=== PATIENT | male | born 1970 ===

== ENCOUNTER 2018-09-22 15:44 | Emergency (ER) | payer MEDICAID, OTHER ==
[2018-09-22 16:10] VITALS: BMI 27.8
[2018-09-22 16:15] VITALS: RESP 18; TEMP 98.4
--- NOTE | 2018-09-22 16:29 | ED PDOC ---
Arrival/HPI - General Chief Complaint: Back Pain Time Seen by Provider: 09/22/18 15:56 - History of Present Illness Narrative History of Present Illness (Text): 09/22/18 16:29 Patient is a 48 yo male with no known medical history who presents with back pa in. 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 For the past few days, he has had left-sided low back pain that has been increasing in severity. He says the pain started gradually, and he does not recall a specific injury. He has full ROM but pain increases with movement. He has not tried anything to make the pain better. He has continued to work. He does not have a PMD. Time/Duration: < week Symptom Onset: Gradual Symptom Course: Worsening Quality: Aching Past Medical History - Provider Review Nursing Documentation Reviewed: Yes Primary Care Provider: Non [facility] Provider, - Cardiac Hx Cardiac Disorders: Yes Hx Hypertension: Yes - Psychiatric Hx Substance Use: No Family/Social History - Physician Review Nursing Documentation Reviewed: Yes Family/Social History: Unknown Family HX Smoking Status: Never Smoked Hx Alcohol Use: No Hx Substance Use: No Allergies/Home Meds Allergies/Adverse Reactions: Allergies No Known Allergies Allergy (Verified 09/22/18 16:15) Home Medications: Home Meds Medication Instructions Recorded Confirmed amLODIPine [Norvasc] 5 mg PO DAILY 09/22/18 09/22/18 Review of Systems - Review of Systems Constitutional: absent: Fatigue, Fevers Eyes: absent: Vision Changes ENT: absent: Hearing Changes Respiratory: absent: SOB, Cough Cardiovascular: absent: Chest Pain, Palpitations Gastrointestinal: absent: Abdominal Pain, Nausea, Vomiting Genitourinary Male: absent: Dysuria, Frequency, Hematuria Musculoskeletal: Back Pain Skin: absent: Rash, Pruritis, Skin Lesions Neurological: absent: Headache, Dizziness, Focal Weakness Endocrine: absent: Diaphoresis Hemo/Lymphatic: absent: Adenopathy Physical Exam Vital Signs Reviewed: Yes Vital Signs Temp Pulse Resp BP Pulse Ox 09/22/18 16:10 98.4 F 80 18 142/89 97 Temperature: Afebrile Blood Pressure: Hypertensive Pulse: Regular Respiratory Rate: Normal Appearance: Positive for: Well-Appearing, Non-Toxic Pain Distress: Mild Mental Status: Positive for: Alert and Oriented X 3 - Systems Exam Head: Present: Atraumatic, Normocephalic Pupils: Present: PERRL Extroacular Muscles: Present: EOMI Conjunctiva: Present: Normal Mouth: Present: Moist Mucous Membranes Respiratory/Chest: Present: Clear to Auscultation, Good Air Exchange Cardiovascular: Present: Regular Rate and Rhythm, Normal S1, S2 Back: Present: Normal Inspection, Paraspinal Tenderness (left lumbar), Other (no lesions, ecchymosis, edema, erythema; full ROM). No: CVA Tenderness, Midline Tenderness Lower Extremity: Present: Normal Inspection, Normal ROM, Neurovascularly Intact. No: Tenderness Neurological: Present: GCS=15, CN II-XII Intact, Speech Normal Skin: Present: Warm, Dry, Normal Color Psychiatric: Present: Alert, Oriented x 3, Normal Insight, Normal Concentration, Normal Affect, Normal Mood Medical Decision Making ED Course and Treatment: 09/22/18 16:42 Toradol, Lidoderm patch Re-evaluation Time: 17:17 Reassessment Condition: Improved - Medication Orders Current Medication Orders: 09/22/18 16:42 Discontinued Medications Ketorolac Tromethamine (Toradol) 30 mg IM STAT STA Stop: 09/22/18 16:37 Lidocaine (Lidoderm) 1 ea TD STAT STA Stop: 09/22/18 16:37 Disposition/Present on Arrival - Present on Arrival Any Indicators Present on Arrival: No History of DVT/PE: No History of Uncontrolled Diabetes: No Urinary Catheter: No History of Decub. Ulcer: No History Surgical Site Infection Following: None - Disposition Have Diagnosis and Disposition been Completed?: Yes Diagnosis: Lumbar back sprain Disposition: HOME/ ROUTINE Disposition Time: 16:42 Patient Plan: Discharge Patient Problems: Current Active Problems Problem Status Onset Lumbar back sprain Acute Condition: GOOD Discharge Instructions (ExitCare): Lumbar Muscle Strain (DC) Additional Instructions: [facility], thank you for letting us take care of you today. Your provider was Ray Carey MD and you were treated for BACK PAIN. The emergency medical care you received today was directed at your acute symptoms. If you were prescribed any medication, please fill it and take as directed. It may take several days for your symptoms to resolve. Return to the Emergency Department if your symptoms worsen, do not improve, or if you have any other problems. Please contact your doctor or call one of the physicians/clinics you have been referred to that are listed on the Patient Visit Information form that is included in your discharge packet. Bring any paperwork you were given at discharge with you along with any medications you are taking to your follow up visit. Our treatment cannot replace ongoing medical care by a primary care provider outside of the emergency department. Thank you for allowing the [facility] team to be part of your care today. Establish care with the [facility] at [facility]. Apply warm compress to affected area. Prescriptions: Lidocaine 5% [Lidoderm] 1 ea TD DAILY #3 patch Naproxen 500 mg PO BID PRN #10 tab PRN Reason: Pain, Moderate (4-7) Referrals: [facility] at [facility] [Outside] - Follow up with primary [facility] [Outside] - Follow up with primary Forms: [employer] ([place])
[2018-09-22] MEDS ORDERED: Lidocaine 5% Patch TD STA (16:36)
[2018-09-22 17:20] VITALS: BP 137/84; PULSE 81; O2SAT 99
== END 2018-09-22 17:22 | disposition home or self-care (01) ==
LOC: ED 15:44
DX: S33.5XXA Sprain of ligaments of lumbar spine, initial encounter (principal); X58.XXXA Exposure to other specified factors, initial encounter
CPT/HCPCS: 96372; 99283; J1885